=== PATIENT | female | born 1975 | race Asian ===

== ENCOUNTER 2016-10-13 03:53 | Emergency (ER) | payer OTHER ==
[~2016-10-13] VITALS: Ht 154.9 cm; Wt 66.4 kg
[2016-10-13 03:55] VITALS: BP 136/65
== END 2016-10-13 04:33 | disposition home or self-care (01) ==
LOC: ED 04:27
DX: R05 Cough (principal); Z88.1 Allergy status to other antibiotic agents
CPT/HCPCS: 99283

== ENCOUNTER 2016-11-12 21:37 | Emergency (ER) | payer OTHER ==
[~2016-11-12] VITALS: Ht 152.4 cm; Wt 63.0 kg
[2016-11-12] MEDS ORDERED: MEDR10TA3 PO (21:56)
[2016-11-12] MEDS ORDERED: SODIUM CHLORIDE 0.9% 1,000ML IVBOLUS ONE (22:30)
[2016-11-12] MEDS ORDERED: SODIUM CHLORIDE FLUSH 10ML SYR IVF ONE (22:30)
[2016-11-12 22:56] LABS: ASPARTATE AMINO TRANSFERASE 16 U/L (15-37); BLOOD UREA NITROGEN 18 mg/dL (7-18)
[2016-11-13 01:13] VITALS: BP 126/85
== END 2016-11-13 01:16 | disposition home or self-care (01) ==
LOC: ED 22:48
DX: N93.8 Other specified abnormal uterine and vaginal bleeding (principal); D25.1 Intramural leiomyoma of uterus
CPT/HCPCS: 36415; 76830; 80053; 84703; 85025; 85610; 85730; 96360; 99285; J7030

== ENCOUNTER 2016-11-17 22:43 | Emergency (ER) | payer OTHER ==
[~2016-11-17 22:43] MED LIST: MEDR10TA3 PO
[2016-11-17] MEDS: SODIUM CHLORIDE 0.9% 1,000 ML IV ONE ×2 (22:56→23:33)
[2016-11-17] MEDS ORDERED: SODIUM CHLORIDE 0.9% 1,000ML IVBOLUS ONE (23:00)
[2016-11-17] MEDS ORDERED: SODIUM CHLORIDE FLUSH 10ML SYR IVF ONE (23:00)
[2016-11-17 23:24] LABS: BLOOD UREA NITROGEN 12 mg/dL (7-18)
[2016-11-18 00:07] VITALS: BP 97/66
== END 2016-11-18 00:29 | disposition home or self-care (01) ==
LOC: ED 23:51
DX: N93.8 Other specified abnormal uterine and vaginal bleeding (principal)
CPT/HCPCS: 36415; 80048; 81001; 82040; 84703; 85025; 87086; 87147; 93005; 96360; 99285; J7030

== ENCOUNTER 2016-12-16 21:09 | Emergency (ER) | payer OTHER ==
[~2016-12-16] VITALS: Ht 154.9 cm; Wt 61.5 kg
[2016-12-16] MEDS ORDERED: ONDANSETRON ODT 4 MG PO ONE (21:30)
[2016-12-16] MEDS ORDERED: OXYcodone/APAP 5/325MG TABLET PO ONE (21:30)
[2016-12-16] MEDS ORDERED: OXYcodone/APAP 5/325MG TABLET ONE (21:46)
[2016-12-16 22:09] LABS: HEMATOCRIT 32.7 % (34.6-47.8); HEMOGLOBIN 10.7 g/dL (11.7-16.4); WHITE BLOOD COUNT 7.7 x10^3/uL (3.4-10)
[2016-12-16 22:21] LABS: ASPARTATE AMINO TRANSFERASE 17 U/L (15-37); BLOOD UREA NITROGEN 19 mg/dL (7-18)
[2016-12-16 23:17] LABS: HCG UR OBC PASS
[2016-12-17] MEDS ORDERED: MAALOX/HYOSCYAMINE/LIDOCAINE 45 ML BTL ONE (00:14)
[2016-12-17 00:24] VITALS: BP 112/79
[2016-12-17] MEDS ORDERED: MAALOX/HYOSCYAMINE/LIDOCAINE 45 ML BTL PO ONE (00:30)
== END 2016-12-17 00:27 | disposition home or self-care (01) ==
LOC: ED 22:53
DX: K29.00 Acute gastritis without bleeding (principal)
CPT/HCPCS: 36415; 80053; 81003; 81025; 83690; 85025; 93005; 99285

== ENCOUNTER 2016-12-23 20:29 | Emergency (ER) | payer OTHER ==
[~2016-12-23] VITALS: Ht 154.9 cm; Wt 60.0 kg
[2016-12-23] MEDS ORDERED: SODIUM CHLORIDE 0.9% 1,000ML IVBOLUS ONE (21:00)
[2016-12-23 21:19] LABS: HEMATOCRIT 40.7 % (34.6-47.8); HEMOGLOBIN 13.1 g/dL (11.7-16.4); WHITE BLOOD COUNT 20.5 x10^3/uL (3.4-10)
[2016-12-23 21:32] LABS: BLOOD UREA NITROGEN 15 mg/dL (7-18)
[2016-12-23 21:35] LABS: ASPARTATE AMINO TRANSFERASE 16 U/L (15-37)
[2016-12-23 22:06] VITALS: BP 123/78
== END 2016-12-23 23:12 | disposition home or self-care (01) ==
LOC: ED 20:40
DX: R11.2 Nausea with vomiting, unspecified (principal); R10.84 Generalized abdominal pain
CPT/HCPCS: 36415; 80053; 83690; 85025; 96360; 96361; 99285; J7030

== ENCOUNTER → 2017-01-06 | Outpatient (CLI) | payer OTHER ==
[~2017-01-06] MED LIST changes: +GINKGO BILOBA PO; +IRON PO; +METFORMIN PO
[2017-01-06 16:39] LABS: HEMATOCRIT 39.5 % (34.6-47.8); HEMOGLOBIN 12.8 g/dL (11.7-16.4); WHITE BLOOD COUNT 8.7 x10^3/uL (3.4-10)
[2017-01-06 16:49] LABS: ASPARTATE AMINO TRANSFERASE 16 U/L (15-37); BLOOD UREA NITROGEN 16 mg/dL (7-18)
== END | disposition home or self-care (01) ==
LOC: STAR 15:35
PROVIDERS: ATTEND Specialist
DX: Z01.818 Encounter for other preprocedural examination (principal); D25.9 Leiomyoma of uterus, unspecified; N93.9 Abnormal uterine and vaginal bleeding, unspecified
CPT/HCPCS: 36415; 80053; 84702; 85025

== ENCOUNTER 2017-01-15 18:20 | Emergency (ER) | payer OTHER ==
[~2017-01-15] VITALS: Ht 152.4 cm; Wt 61.7 kg
[2017-01-15] MEDS ORDERED: SODIUM CHLORIDE 0.9% 1,000ML IVBOLUS ONE (19:00)
[2017-01-15] MEDS ORDERED: SODIUM CHLORIDE FLUSH 10ML SYR IVF ONE (19:00)
[2017-01-15 19:27] LABS: HEMATOCRIT 38.1 % (34.6-47.8); HEMOGLOBIN 12.7 g/dL (11.7-16.4)
[2017-01-15 19:36] LABS: ASPARTATE AMINO TRANSFERASE 15 U/L (15-37); BLOOD UREA NITROGEN 12 mg/dL (7-18)
[2017-01-15] MEDS ORDERED: METH10TA4 PO (20:13)
[2017-01-15 21:12] VITALS: BP 124/64
== END 2017-01-15 21:36 | disposition home or self-care (01) ==
LOC: ED 19:41
DX: E86.0 Dehydration (principal); R55 Syncope and collapse; Z88.1 Allergy status to other antibiotic agents
CPT/HCPCS: 36415; 80053; 81003; 82962; 83690; 84703; 85025; 93005; 96360; 96361; 99285; J7030